=== PATIENT | female | born 1960 | race Caucasian/White ===

== ENCOUNTER 2018-04-01 05:25 | Emergency (ER) | payer OTHER ==
--- NOTE | 2018-04-01 05:59 | EDM.PDOC ---
ED HPI GENERAL MEDICAL PROBLEM - General Chief Complaint: Back Pain or Injury Stated Complaint: HAND AND FOOT PAIN Time Seen by Provider: 04/01/18 05:49 - History of Present Illness INITIAL COMMENTS - FREE TEXT/NARRATIVE: 58-year-old female presents emergency room complaining of pain. She has back pain and bilateral hand and feet pain.. 2 days ago the patient moved. She doesn't think this is what aggravated her condition. She has numbness and tingling in both hands worse on the right than the left she has generalized foot pain and generalized back pain. The patient denies any exposures to heavy metals or other toxicities. Bilateral Hand Pain Score (Numeric/FACES): 8 Bilateral Feet Pain Score (Numeric/FACES): 8 Sacral Pain Score (Numeric/FACES): 8 - Related Data Allergies Allergy/AdvReac Type Severity Reaction Status Date / Time No Known Allergies Allergy Verified 04/01/18 05:35 Home Meds: Home Meds Acetaminophen/HYDROcodone [Potosi 325-5 MG] 1 tab PO Q6H #12 tablet 04/01/18 [Rx] Escitalopram [Lexapro] 10 mg PO DAILY 04/01/18 [History] Past Medical History Musculoskeletal History: Reports: Arthritis Neurological History: Reports: Other (See Below) Other Neuro History: bulging disks Social & Family History - Tobacco Use Smoking Status *Q: Current Every Day Smoker Years of Tobacco use: 30 Packs/Tins Daily: 0.5 - Caffeine Use Caffeine Use: Reports: None - Recreational Drug Use Recreational Drug Use: No ED ROS GENERAL - Review of Systems Review Of Systems: See Below Constitutional: Reports: No Symptoms HEENT: Reports: No Symptoms Respiratory: Reports: No Symptoms Cardiovascular: Reports: No Symptoms GI/Abdominal: Reports: No Symptoms Musculoskeletal: Reports: Other (See history of present illness) Skin: Reports: No Symptoms Neurological: Reports: Paresthesia ED EXAM, GENERAL - Physical Exam Exam: See Below Exam Limited By: No Limitations General Appearance: Alert, No Apparent Distress, Other (Patient seems to be hyperresponsive the pain) Head: Atraumatic, Normocephalic Neck: Normal Inspection, Supple, Other (She has some vague muscle tenderness mostly on the right). No: Full Range of Motion, Lymphadenopathy (R), Tender Midline Respiratory/Chest: No Respiratory Distress, Lungs Clear, Normal Breath Sounds Cardiovascular: Regular Rate, Rhythm, No Edema, No Murmur GI/Abdominal: Normal Bowel Sounds, Soft, Non-Tender Extremities: Other (Patient has discomfort in her hands in general especially around the joint this is different from her CTS pain) Neurological: Other (Patient has positive Tinel's both wrists worse on the right with proximal and distal paresthesias vague paresthesias on the left positive Phalen's and reverse Phalen's bilaterally again worse on the right) Skin Exam: Warm, Dry, Intact Course - Vital Signs Last Recorded V/S: Last Vital Signs Temp 36.8 C 04/01/18 05:27 Pulse 118 H 04/01/18 05:27 Resp 16 04/01/18 05:27 BP 133/77 04/01/18 05:27 Pulse Ox 96 04/01/18 05:27 - Orders/Labs/Meds Orders: Active Orders 24 hr Category Date Time Status Durable Medical Equipment for Discharge [DME for Oth 04/01/18 07:16 Ordered Discharge] [COMM] Stat Meds: Medications Discontinued Medications Generic Name Dose Route Start Last Admin Trade Name Mariam PRN Reason Stop Dose Admin Hydrocodone Bitart/Acetaminophen 1 tab 04/01/18 07:16 04/01/18 07:19 Potosi 325-5 Mg PO 04/01/18 07:17 1 tab ONETIME ONE Administration Ketorolac Tromethamine 30 mg 04/01/18 06:05 04/01/18 06:13 Toradol IM 04/01/18 06:06 30 mg ONETIME ONE Administration - Re-Assessments/Exams Free Text/Narrative Re-Assessment/Exam: 04/01/18 07:36 No history of trauma x-rays not obtained I believe the patient has degenerative changes in her hands and feet from exam her age and history. She has some back pain associated with this that goes into her right neck. Patient was given 30 mg of IM Toradol without much improvement she was given a single Potosi and a prescription for a few more so she can get some relief and comfort. The patient has follow-up with her primary in a couple of days. Departure - Departure Time of Disposition: 07:15 Disposition: Home, Self-Care 01 Clinical Impression: Back pain, Carpal tunnel syndrome on both sides, Foot pain, bilateral - Discharge Information Prescriptions: Acetaminophen/HYDROcodone [Potosi 325-5 MG] 1 tab PO Q6H #12 tablet Referrals: Wanda Thomson NP [Primary Care Provider] - Forms: ED Department Discharge, ED Return to Work/School Form - My Orders Last 24 Hours: My Active Orders 04/01/18 07:16 Durable Medical Equipment for Discharge [DME for Discharge] [COMM] Stat - Assessment/Plan Last 24 Hours: My Active Orders 04/01/18 07:16 Durable Medical Equipment for Discharge [DME for Discharge] [COMM] Stat
[2018-04-01] MEDS ORDERED: Ketorolac 30 MG/ML SDV IM ONE (06:05)
[2018-04-01] MEDS ORDERED: Acetaminophen/HYDROcodone 325-5 MG Tab PO ONE (07:16)
[2018-04-01 07:27] VITALS: BP 123/72
== END 2018-04-01 07:29 | disposition home or self-care (01) ==
LOC: JD.ED 05:25
DX: G56.03 Carpal tunnel syndrome, bilateral upper limbs (principal); M79.671 Pain in right foot; M79.672 Pain in left foot; M53.3 Sacrococcygeal disorders, not elsewhere classified; F17.210 Nicotine dependence, cigarettes, uncomplicated
CPT/HCPCS: 96372; 99283; A9270; J1885

== ENCOUNTER 2018-05-07 11:09 | Emergency (ER) | payer OTHER ==
[2018-05-07 11:19] VITALS: BP 137/86
[2018-05-07] MEDS ORDERED: Sodium Chloride 0.9% 10 ML Syringe FLUSH PRN (11:46)
[2018-05-07] MEDS ORDERED: methylPREDNISolone Sodium Succinate 125 MG/2 ML SDV IVPUSH ONE (11:49)
[2018-05-07] MEDS ORDERED: HYDROmorphone 1 MG/ML Syringe IVPUSH ONE ×2 (11:50→14:37)
--- NOTE | 2018-05-07 14:06 | EDM.PDOC ---
ED HPI GENERAL MEDICAL PROBLEM - General Chief Complaint: Upper Extremity Injury/Pain Stated Complaint: PAIN AND SWELLING IN ARMS AND LEGS Time Seen by Provider: 05/07/18 11:30 Source of Information: Reports: Patient History Limitations: Reports: No Limitations - History of Present Illness INITIAL COMMENTS - FREE TEXT/NARRATIVE: The patient presents with generalized joint pain. She says this all started about 3 to 4 weeks ago. Pain started in her feet and then to her hands and now her neck, back, shoulders hips, knees, shoulders and hands. She say her provider and was referred to a livestock rancher and then to an orthopedic surgeon. They were not sure was causing her pain. At one point she was put on some steroids and she did better. That was a couple weeks ago. The last couple days have been there worst. She has no fever or chills. She does smoke and has a slight cough at times. She has no chest pain or shortness of breath. She has no abdominal pain, nausea or vomiting. Onset: Gradual Duration: Week(s): (4) Location: Reports: Generalized Quality: Reports: Sharp Severity: Severe Improves with: Reports: Immobilization Worsens with: Reports: Movement Associated Symptoms: Denies: Chest Pain, Fever/Chills, Headaches, Nausea/ Vomiting, Shortness of Breath neck, arms, hands, wrists, right leg, right knee, feet Pain Score (Numeric/FACES): 10 - Related Data Allergies Allergy/AdvReac Type Severity Reaction Status Date / Time No Known Allergies Allergy Verified 05/07/18 11:19 Home Meds: Home Meds Antidepressant 1 tab PO DAILY 05/07/18 [History] Hydrocodone/Acetaminophen [Hydrocodon-Acetaminophen 5-325] 1 - 2 each PO Q6HR PRN #20 tablet 05/07/18 [Rx] predniSONE [Prednisone] 10 mg PO DAILY #7 tablet 05/07/18 [Rx] Past Medical History HEENT History: Reports: Impaired Vision Other HEENT History: wearing glasses 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: Musculoskeletal History: Reports: Arthritis Neurological History: Reports: Other (See Below) Other Neuro History: bulging disks Psychiatric History: Reports: Anxiety, Depression - Past Surgical History GI Surgical History: Reports: Appendectomy, Colonoscopy, Polypectomy Female Surgical History: Reports: Section Social & Family History - Family History Family Medical History: Noncontributory - Tobacco Use Smoking Status *Q: Current Every Day Smoker Years of Tobacco use: 30 Packs/Tins Daily: 1 - Caffeine Use Caffeine Use: Reports: Tea - Recreational Drug Use Recreational Drug Use: No Review of Systems - Review of Systems Review Of Systems: See Below Constitutional: Reports: No Symptoms Eyes: Reports: No Symptoms Ears: Reports: No Symptoms Nose: Reports: No Symptoms Mouth/Throat: Reports: No Symptoms Respiratory: Reports: No Symptoms Cardiovascular: Reports: No Symptoms GI/Abdominal: Reports: No Symptoms Genitourinary: Reports: No Symptoms Musculoskeletal: Reports: Joint Pain, Joint Swelling ED EXAM, GENERAL - Physical Exam Exam: See Below Exam Limited By: No Limitations General Appearance: Alert, No Apparent Distress, Mild Distress Ears: Normal External Exam Nose: Normal Inspection Head: Atraumatic, Normocephalic Neck: Normal Inspection Respiratory/Chest: No Respiratory Distress, Lungs Clear, Normal Breath Sounds Cardiovascular: Regular Rate, Rhythm, No Edema, No Murmur GI/Abdominal: Soft, Non-Tender, No Organomegaly, No Mass Extremities: Other (Pain upon palpation to the neck, shoulders, elbows, hands, knees, hips and ankles. She has edema to her hands.) Course - Vital Signs Last Recorded V/S: Last Vital Signs Temp 96.6 F 05/07/18 11:13 Pulse 122 H 05/07/18 11:13 Resp 18 05/07/18 11:13 BP 137/86 05/07/18 11:13 Pulse Ox 97 05/07/18 11:13 - Orders/Labs/Meds Orders: Active Orders 24 hr Category Date Time Status Cardiac Monitoring [RC] . DIRECTED Care 05/07/18 11:47 Active Peripheral IV Care [RC] . DIRECTED Care 05/07/18 11:47 Active DAV W/RFX TO ALL IF POSITIVE [REF] Stat Lab 05/07/18 12:05 Received Sodium Chloride 0.9% [Saline Flush] Med 05/07/18 11:46 Active 10 ml FLUSH ASDIRECTED PRN Peripheral IV Insertion Adult [OM.PC] Stat Oth 05/07/18 11:46 Ordered Medication Orders Sodium Chloride (Saline Flush) 10 ml FLUSH ASDIRECTED PRN PRN Reason: Keep Vein Open Last Admin: 05/07/18 12:09 Dose: 10 ml Labs: Laboratory Tests 05/07/18 05/07/18 05/07/18 Range/Units 12:05 12:05 12:05 WBC 10.06 H (3.98-10.04) K/mm3 RBC 4.36 (3.98-5.22) M/mm3 Hgb 11.8 (11.2-15.7) gm/L Hct 38.2 (34.1-44.9) % MCV 87.6 (79.4-94.8) fl MCH 27.1 (25.6-32.2) pg MCHC 30.9 L (32.2-35.5) g/dl RDW Std Deviation 45.5 (36.4-46.3) fL Plt Count 650 H (182-369) K/mm3 MPV 8.7 L (9.4-12.3) fl Neut % (Auto) 66.4 (34.0-71.1) % Lymph % (Auto) 12.0 L (19.3-51.7) % Haralson % (Auto) 10.4 (4.7-12.5) % Eos % (Auto) 10.3 H (0.7-5.8) Baso % (Auto) 0.6 (0.1-1.2) % Neut # (Auto) 6.67 H (1.56-6.13) K/mm3 Lymph # (Auto) 1.21 (1.18-3.74) K/mm3 Haralson # (Auto) 1.05 H (0.24-0.36) K/mm3 Eos # (Auto) 1.04 H (0.04-0.36) K/mm3 Baso # (Auto) 0.06 (0.01-0.08) K/mm3 Manual Slide Review Abnormal smear ESR 94 H (0-20) mm/hr Sodium 140 (136-145) mEq/L Potassium 3.7 (3.5-5.1) mEq/L Chloride 103 (98-107) mEq/L Carbon Dioxide 26 (21-32) mEq/L Anion Gap 14.7 (5-15) BUN 15 (7-18) mg/dL Creatinine 0.9 (0.55-1.02) mg/dL Est Cr Clr Drug Dosing 56.36 mL/min Estimated GFR (MDRD) > 60 (>60) mL/min BUN/Creatinine Ratio 16.7 (14-18) Glucose 204 H (74-106) mg/dL Calcium 9.1 (8.5-10.1) mg/dL Total Bilirubin 0.2 (0.2-1.0) mg/dL AST 11 L (15-37) U/L ALT 23 (14-59) U/L Alkaline Phosphatase 127 H (46-116) U/L C-Reactive Protein 10.2 H* (<1.0) mg/dL Total Protein 7.4 (6.4-8.2) g/dl Albumin 2.7 L (3.4-5.0) g/dl Globulin 4.7 gm/dL Albumin/Globulin Ratio 0.6 L (1-2) Rheumatoid Factor Scrn (NEGATIVE) 05/07/18 Range/Units 12:05 WBC (3.98-10.04) K/mm3 RBC (3.98-5.22) M/mm3 Hgb (11.2-15.7) gm/L Hct (34.1-44.9) % MCV (79.4-94.8) fl MCH (25.6-32.2) pg MCHC (32.2-35.5) g/dl RDW Std Deviation (36.4-46.3) fL Plt Count (182-369) K/mm3 MPV (9.4-12.3) fl Neut % (Auto) (34.0-71.1) % Lymph % (Auto) (19.3-51.7) % Haralson % (Auto) (4.7-12.5) % Eos % (Auto) (0.7-5.8) Baso % (Auto) (0.1-1.2) % Neut # (Auto) (1.56-6.13) K/mm3 Lymph # (Auto) (1.18-3.74) K/mm3 Haralson # (Auto) (0.24-0.36) K/mm3 Eos # (Auto) (0.04-0.36) K/mm3 Baso # (Auto) (0.01-0.08) K/mm3 Manual Slide Review ESR (0-20) mm/hr Sodium (136-145) mEq/L Potassium (3.5-5.1) mEq/L Chloride (98-107) mEq/L Carbon Dioxide (21-32) mEq/L Anion Gap (5-15) BUN (7-18) mg/dL Creatinine (0.55-1.02) mg/dL Est Cr Clr Drug Dosing mL/min Estimated GFR (MDRD) (>60) mL/min BUN/Creatinine Ratio (14-18) Glucose (74-106) mg/dL Calcium (8.5-10.1) mg/dL Total Bilirubin (0.2-1.0) mg/dL AST (15-37) U/L ALT (14-59) U/L Alkaline Phosphatase (46-116) U/L C-Reactive Protein (<1.0) mg/dL Total Protein (6.4-8.2) g/dl Albumin (3.4-5.0) g/dl Globulin gm/dL Albumin/Globulin Ratio (1-2) Rheumatoid Factor Scrn Positive H (NEGATIVE) Meds: Medications Generic Name Dose Route Start Last Admin Trade Name Freq PRN Reason Stop Dose Admin Sodium Chloride 10 ml 05/07/18 11:46 05/07/18 12:09 Saline Flush FLUSH 10 ml ASDIRECTED PRN Administration Keep Vein Open Discontinued Medications Generic Name Dose Route Start Last Admin Trade Name Freq PRN Reason Stop Dose Admin Hydromorphone HCl 1 mg 05/07/18 11:50 05/07/18 12:07 Dilaudid IVPUSH 05/07/18 11:51 1 mg ONETIME ONE Administration Methylprednisolone Sodium Succinate 125 mg 05/07/18 11:49 05/07/18 12:07 Solu-Medrol IVPUSH 05/07/18 11:50 125 mg ONETIME ONE Administration - Re-Assessments/Exams Free Text/Narrative Re-Assessment/Exam: 05/07/18 14:10 I ordered an IV, solu-medrol 125mg IV, dilaudid 1mg IV and labs. Her WBC was slightly elevated at 10.06. Her platelets were elevated at 650. Her ESR is elevated at 94. Her glucose is elevated at 204. Her alk phos is elevated at 127. Her CRP is elevated at 10.2. Her rheumatoid factor was positive. I called Dr Krishna a loft rigger at [facility] in [place] and he wants her on some steroids for a few days and he would like to see her on May 13. Departure - Departure Time of Disposition: 14:25 Disposition: Home, Self-Care 01 Condition: Good Clinical Impression: Polymyalgia rheumatica - Discharge Information *PRESCRIPTION DRUG MONITORING PROGRAM REVIEWED*: No *COPY OF PRESCRIPTION DRUG MONITORING REPORT IN PATIENT GREGG: No Prescriptions: Hydrocodone/Acetaminophen [Hydrocodon-Acetaminophen 5-325] 1 - 2 each PO Q6HR PRN #20 tablet PRN Reason: Pain predniSONE [Prednisone] 10 mg PO DAILY #7 tablet Referrals: Wanda Thomson NP [Primary Care Provider] - Additional Instructions: Take the prednisone 40mg tomorrow then 20mg the next day and then 10mg the next day. Take the hydrocodone every 6 hours as needed for pain. Follow up with Dr Krishna at [facility] in [place] at 11m [place] time on FridayMay 13. Please return if you are worse. - My Orders Last 24 Hours: My Active Orders 05/07/18 11:46 Sodium Chloride 0.9% [Saline Flush] 10 ml FLUSH ASDIRECTED PRN Peripheral IV Insertion Adult [OM.PC] Stat 05/07/18 11:47 Cardiac Monitoring [RC] . DIRECTED Peripheral IV Care [RC] . DIRECTED 05/07/18 12:05 DAV W/RFX TO ALL IF POSITIVE [REF] Stat - Assessment/Plan Last 24 Hours: My Active Orders 05/07/18 11:46 Sodium Chloride 0.9% [Saline Flush] 10 ml FLUSH ASDIRECTED PRN Peripheral IV Insertion Adult [OM.PC] Stat 05/07/18 11:47 Cardiac Monitoring [RC] . DIRECTED Peripheral IV Care [RC] . DIRECTED 05/07/18 12:05 DAV W/RFX TO ALL IF POSITIVE [REF] Stat
== END 2018-05-07 14:56 | disposition home or self-care (01) ==
LOC: JD.ED 11:09
DX: M35.3 Polymyalgia rheumatica (principal); F17.210 Nicotine dependence, cigarettes, uncomplicated; F32.9 Major depressive disorder, single episode, unspecified; F41.9 Anxiety disorder, unspecified; Z79.899 Other long term (current) drug therapy
CPT/HCPCS: 80053; 85025; 85652; 86038; 86140; 86200; 86430; 96374; 96375; 96376; 99283; J1170; J2930; 36415; 99284

== ENCOUNTER 2019-05-15 23:20 | Emergency (ER) | payer MEDICAID, OTHER ==
[2019-05-15 23:48] VITALS: BP 107/68
[2019-05-16] MEDS ORDERED: Orphenadrine 100 MG Tab.ER PO STA (01:20)
[2019-05-16] MEDS ORDERED: HYDROmorphone 1 MG/ML Syringe IM ONE (01:20)
--- NOTE | 2019-05-16 01:35 | EDM.PDOC ---
ED HPI GENERAL MEDICAL PROBLEM - General Chief Complaint: Upper Extremity Injury/Pain Stated Complaint: pain in shoulder and down back Time Seen by Provider: 05/16/19 00:56 Source of Information: Reports: Patient, Other (Friend) History Limitations: Reports: Uncooperative (Hostile. Does not want to answer questions. Questions she did answer, she answered angrily.) - History of Present Illness INITIAL COMMENTS - FREE TEXT/NARRATIVE: Ms. Flores is a 59-year-old woman with a past medical history significant for degenerative cervical disc disease, anxiety, depression, and rheumatoid arthritis, currently on methotrexate, but due to be started on an additional IV medicine (a biologic?) per her Graphics Artist, who now presents to the ED stating that she developed pain extending from her neck (although not involving her neck) to her right scapular area around 20:00 to 21:00 this evening. The onset is unclear. She said that it came on suddenly, but also stated that she had a pinching sensation in the area that may have preceded the pain by an hour. Alternatively, the pain may have gradually developed. No injury or strain to the area. She states that her pain is not due to her rheumatoid arthritis. As best I can ascertain, no prior similar symptoms. The patient also reports a tingling sensation to her right third finger on and off for months, unchanged. The patient's PCP is Chely Sevilla NP. Her Graphics Artist is Dr. Tung Krishna. She received an influenza vaccine this season. Right Shoulder Pain Score (Numeric/FACES): 10 - Related Data Allergies Allergy/AdvReac Type Severity Reaction Status Date / Time No Known Allergies Allergy Verified 05/07/18 11:19 Home Meds: Home Meds Antidepressant 1 tab PO DAILY 05/07/18 [History] Hydrocodone/Acetaminophen [Hydrocodon-Acetaminophen 5-325] 1 - 2 each PO Q6HR PRN #20 tablet 05/07/18 [Rx] predniSONE [Prednisone] 10 mg PO DAILY #7 tablet 05/07/18 [Rx] Orphenadrine [Norflex] 1 tab PO Q12H PRN #14 tab.er 05/16/19 [Rx] Past Medical History HEENT History: Reports: Impaired Vision Other HEENT History: wears glasses Musculoskeletal History: Reports: Neck Pain, Chronic (degenerative cervical disc disease), RA Psychiatric History: Reports: Anxiety, Depression - Past Surgical History GI Surgical History: Reports: Appendectomy, Colonoscopy (x 3), Polypectomy Female Surgical History: Reports: Section (x 1) Social & Family History - Family History Family Medical History: Noncontributory - Tobacco Use Smoking Status *Q: Current Every Day Smoker Years of Tobacco use: 41 Packs/Tins Daily: 0.5 Packs/Tins Daily Comment: Down from 1 ppd - Caffeine Use Caffeine Use: Reports: Tea - Alcohol Use Alcohol Use History: Yes Alcohol Use Frequency: Rarely - Recreational Drug Use Recreational Drug Use: No - Living Situation & Occupation Living situation: Reports: , Alone Occupation: Unemployed ED ROS GENERAL - Review of Systems Review Of Systems: Comprehensive ROS is negative, except as noted in HPI. ED EXAM, UPPER BACK/NECK PAIN - Physical Exam Exam: See Below Exam Limited By: No Limitations General Appearance: Alert, WD/WN, Mild Distress (complaining of pain) Eye Exam: Bilateral Eye: EOMI, Normal Inspection Ears Exam: Normal External Exam, Hearing Grossly Normal Nose Exam: Normal Inspection Throat/Mouth Exam: Normal Inspection, Normal Lips, Normal Voice, No Airway Compromise Head Exam: Atraumatic, Normocephalic Neck Exam: Full Range of Motion, Normal Alignment, Normal Inspection Cardiovascular/Respiratory: Regular Rate, Rhythm, No M/R/G, Normal Peripheral Pulses, No JVD, Normal Breath Sounds, No Respiratory Distress GI/Abdominal: Normal Bowel Sounds, Soft, Non-Tender, No Organomegaly, No Distention, No Abnormal Bruit, No Mass (Female) Exam: Deferred Rectal (Female) Exam: Deferred Back Exam: Full Range of Motion, Muscle Spasm (Reproducible tenderness to palpation of the right medial parascapular musculature. A muscle spasm is palpable.) Extremities: Normal Inspection, Normal Range of Motion, No Pedal Edema, Normal Capillary Refill Neurologic: No Motor/Sensory Deficits, Alert, Oriented x 3 Psychiatric: Other (Angry/hostile) Skin Exam: Normal Color, Warm/Dry Course - Vital Signs Last Recorded V/S: Last Vital Signs Temp 36.9 C 05/15/19 23:26 Pulse Resp 16 05/15/19 23:26 BP 107/68 05/15/19 23:48 Pulse Ox 98 05/15/19 23:26 - Orders/Labs/Meds Labs: Laboratory Tests 05/16/19 05/16/19 05/16/19 Range/Units 00:04 00:04 00:04 WBC 12.55 H (3.98-10.04) K/mm3 RBC 4.34 (3.98-5.22) M/mm3 Hgb 13.1 (11.2-15.7) gm/dl Hct 40.6 (34.1-44.9) % MCV 93.5 D (79.4-94.8) fl MCH 30.2 (25.6-32.2) pg MCHC 32.3 (32.2-35.5) g/dl RDW Std Deviation 47.0 H (36.4-46.3) fL Plt Count 418 H D (182-369) K/mm3 MPV 9.4 (9.4-12.3) fl Neut % (Auto) 82.5 H (34.0-71.1) % Lymph % (Auto) 8.1 L (19.3-51.7) % [place] % (Auto) 7.2 (4.7-12.5) % Eos % (Auto) 1.6 (0.7-5.8) Baso % (Auto) 0.4 (0.1-1.2) % Neut # (Auto) 10.36 H (1.56-6.13) K/mm3 Lymph # (Auto) 1.02 L (1.18-3.74) K/mm3 [place] # (Auto) 0.90 H (0.24-0.36) K/mm3 Eos # (Auto) 0.20 (0.04-0.36) K/mm3 Baso # (Auto) 0.05 (0.01-0.08) K/mm3 Manual Slide Review Abnormal smear D-Dimer, Quantitative 0.41 (0.19-0.50) mg/L Sodium 139 (136-145) mEq/L Potassium 3.9 (3.5-5.1) mEq/L Chloride 104 (98-107) mEq/L Carbon Dioxide 23 (21-32) mEq/L Anion Gap 15.9 H (5-15) BUN 15 (7-18) mg/dL Creatinine 1.0 (0.55-1.02) mg/dL Est Cr Clr Drug Dosing 47.91 mL/min Estimated GFR (MDRD) 57 (>60) mL/min BUN/Creatinine Ratio 15.0 (14-18) Glucose 150 H (74-106) mg/dL Calcium 8.7 (8.5-10.1) mg/dL Total Bilirubin 0.2 (0.2-1.0) mg/dL AST 19 (15-37) U/L ALT 31 (14-59) U/L Alkaline Phosphatase 116 (46-116) U/L Total Protein 7.4 (6.4-8.2) g/dl Albumin 3.6 (3.4-5.0) g/dl Globulin 3.8 gm/dL Albumin/Globulin Ratio 1.0 (1-2) Meds: Medications Discontinued Medications Generic Name Dose Route Start Last Admin Trade Name Freq PRN Reason Stop Dose Admin Hydromorphone HCl 1 mg 05/16/19 01:20 05/16/19 01:25 Dilaudid IM 05/16/19 01:21 1 mg ONETIME ONE Administration Orphenadrine Citrate 100 mg 05/16/19 01:20 05/16/19 01:25 Norflex PO 05/16/19 01:21 100 mg ONETIME STA Administration - Re-Assessments/Exams Free Text/Narrative Re-Assessment/Exam: 05/16/19 01:21 The patient's CBC is remarkable for a WBC count mildly elevated at 12.55, and platelets elevated at 418,000, with the remainder of her CBC being unremarkable. Her CMP is remarkable for an anion gap slightly elevated at 15.9, but with a bicarbonate normal at 23. Her blood glucose is elevated at 150, with the remainder of her CMP being unremarkable. Her D-dimer is within normal limits at 0.41. With a D-dimer within normal limits, a pulmonary embolus is highly unlikely, and no further evaluation in that regard is indicated. On examination, the patient has reproducible tenderness to her right parascapular musculature. Her lungs are clear to auscultation bilaterally. My suspicion for a pneumothorax is very low, but I believe a chest x-ray would be appropriate to rule out an anatomic abnormality. In the meantime, the patient will be treated with IM Dilaudid and oral Norflex. 05/16/19 02:22 Two-view chest radiograph appears to be grossly normal. The cardiac silhouette is within normal limits. No pulmonary vascular congestion. No pleural effusions. No focal infiltrate. No pneumothorax. Formal read per the Radiologist pending. 05/16/19 02:26 Test results discussed with the patient. The patient does not have a pulmonary embolus, pneumonia, or pneumothorax. Her pain is reproducible with palpation of the parascapular muscle, indicating a muscle spasm. I explained to the patient that this is a very common place for people to have muscle spasms, oftentimes related to stress. 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 The patient responded "I knew nothing would be done. I knew this would be a waste of time. " I again explained to the patient how it was that I determined that her pain is due to a muscle spasm, and reassured her that the combination of ibuprofen and Norflex works very well, if she is patient. The patient shook her head as if in disbelief. I asked her if there was some other evaluation or treatment that she thinks that should have been done instead, and she responded no. Departure - Departure Time of Disposition: 02:30 Disposition: Home, Self-Care 01 Condition: Good Clinical Impression: Spasm of back muscles - Discharge Information *PRESCRIPTION DRUG MONITORING PROGRAM REVIEWED*: Not Applicable *COPY OF PRESCRIPTION DRUG MONITORING REPORT IN PATIENT GREGG: Not Applicable Prescriptions: Orphenadrine [Norflex] 1 tab PO Q12H PRN #14 tab.er PRN Reason: Muscle Spasm Instructions: Muscle Cramps and Spasms, [id number] Referrals: Chely Sevilla NP [Primary Care Provider] - Tung Hendricks DO [Ordering Only Provider] - Forms: ED Department Discharge Additional Instructions: You were seen in the emergency room for upper right back pain. Work-up in the ER included blood work and a chest x-ray. Your entire work-up was unremarkable. You do not have pneumonia. You do not have a blood clot in your lungs. You do not have a collapsed lung. Based on your history, physical exam, and ER tests, the cause of your pain is a muscle spasm of your right parascapular musculature. You have been started on the muscle relaxant Norflex, and a prescription for Norflex has been sent to the [facility] pharmacy, located just south and across the [address] from [facility]. They will be open between noon and 4:00 today, Friday. Take 1 tablet of Norflex every 12 hours, as prescribed. In addition to Norflex, we recommend that you take [id number] ibuprofen, 3 tablets (600 mg) every 8 hours, with food. The combination of ibuprofen and Norflex works very well for muscle spasm pain. If your symptoms persist, please follow-up with your PCP, or return to the ER for reevaluation. Sepsis Event Note - Evaluation Sepsis Screening Result: No Definite Risk - Focused Exam Date Exam was Performed: 05/16/19 Time Exam was Performed: 21:21
--- NOTE | 2019-05-16 18:25 | CR ---
Chest: 2 views of the chest were obtained. Comparison: Prior chest x-ray of 02/25/12. Slight parenchymal density is seen above the left hemidiaphragm most likely representing atelectasis. Lungs otherwise are clear with no acute parenchymal change. Mild degenerative change is scattered within the spine. Impression: 1. Mild left basilar atelectasis. 2. Nothing acute is otherwise seen on 2 view chest x-ray. Diagnostic code #2 This report was dictated in [place] Standard Time
== END 2019-05-16 02:40 | disposition home or self-care (01) ==
LOC: JD.ED 23:20
DX: M62.830 Muscle spasm of back (principal); F17.210 Nicotine dependence, cigarettes, uncomplicated; Z79.899 Other long term (current) drug therapy
CPT/HCPCS: 36415; 71046; 80053; 85025; 85379; 96372; 99283; A9270; J1170